=== PATIENT | female | born 1970 | race African-American/Black ===

== ENCOUNTER 2018-02-08 22:22 | Emergency (ER) | payer OTHER ==
[~2018-02-08] VITALS: Ht 160 cm; Wt 86.8 kg
[2018-02-08 22:28] VITALS: BP 136/86
== END 2018-02-08 23:50 | disposition home or self-care (01) ==
LOC: ED 23:25
DX: S83.411A Sprain of medial collateral ligament of right knee, initial encounter (principal); I10 Essential (primary) hypertension; J45.909 Unspecified asthma, uncomplicated; Z90.49 Acquired absence of other specified parts of digestive tract; Z90.710 Acquired absence of both cervix and uterus; X58.XXXA Exposure to other specified factors, initial encounter; Y93.89 Activity, other specified; Y99.8 Other external cause status
CPT/HCPCS: 29505; 99284

== ENCOUNTER 2018-05-09 12:40 | Emergency (ER) | payer OTHER ==
[~2018-05-09] VITALS: Ht 160 cm; Wt 85.6 kg
[2018-05-09] MEDS ORDERED: AMLO5TAB7 PO (13:01)
[2018-05-09] MEDS ORDERED: LORazepam 2 MG/ML, 1ML IVPush ONE ×2 (13:30→14:30)
[2018-05-09 13:32] LABS: BASOPHILS # (AUTO) 0.03 x10^3/uL (0-0.1); BASOPHILS % (AUTO) 1 % (0-1); EOSINOPHILS # (AUTO) 0.15 x10^3/uL (0-0.4); EOSINOPHILS % (AUTO) 3 % (1-7); LYMPHOCYTES # (AUTO) 1.14 x10^3/uL (1-3.4); LYMPHOCYTES % (AUTO) 22 % (22-44); MD NO; MEAN CORPUSCULAR HEMOGLOBIN 29.6 pg (27.0-34.8); MEAN CORPUSCULAR HGB CONC 33.5 g/dL (32.4-35.8); MEAN CORPUSCULAR VOLUME 88.3 fL (80-100); MEAN PLATELET VOLUME 7.8 fL (7.4-10.4); MONOCYTES # (AUTO) 0.39 x10^3/uL (0.2-0.8); MONOCYTES % (AUTO) 8 % (2-9); NEUTROPHILS # (AUTO) 3.45 x10^3/uL (1.8-6.8); NEUTROPHILS % (AUTO) 67 % (42-75); PLATELET COUNT 316 x10^3/uL (130-400); RED BLOOD COUNT 4.59 x10^6/uL (3.82-5.3); RED CELL DISTRIBUTION WIDTH 13.5 % (9.6-15.2)
[2018-05-09 13:41] LABS: ALBUMIN 3.8 g/dL (3.4-5.0); ANION GAP 11 mmol/L (5-15); CALCIUM 8.6 mg/dL (8.5-10.1); CHLORIDE 105 mmol/L (98-107)
[2018-05-09] MEDS ORDERED: LORazepam 2 MG/ML, 1ML ONE (13:41)
[2018-05-09 13:46] LABS: ALANINE AMINOTRANSFERASE 31 U/L (12-78); ALKALINE PHOSPHATASE 81 U/L (45-117); BILIRUBIN,TOTAL 0.5 mg/dL (0.2-1.0); CREATININE 0.86 mg/dL (0.55-1.02); TOTAL PROTEIN 7.9 g/dL (6.4-8.2); TROPONIN I < 0.015 ng/mL (0.000-0.045)
[2018-05-09] MEDS ORDERED: SODIUM CHLORIDE FLUSH 10ML SYR IVF ONE (14:00)
[2018-05-09] MEDS ORDERED: POTASSIUM CHLORIDE 20 MEQ TAB.ER.PRT PO ONE (14:30)
[2018-05-09] MEDS ORDERED: SODIUM CHLORIDE 0.9% 1,000ML IVBOLUS ONE (14:30)
[2018-05-09] MEDS ORDERED: POTASSIUM CHLORIDE 20 MEQ TAB.ER.PRT ONE (14:38)
[2018-05-09 14:43] VITALS: BP 122/85
== END 2018-05-09 16:01 | disposition home or self-care (01) ==
LOC: ED 14:38
DX: J45.31 Mild persistent asthma with (acute) exacerbation (principal); E87.6 Hypokalemia; M62.838 Other muscle spasm; G43.909 Migraine, unspecified, not intractable, without status migrainosus; I10 Essential (primary) hypertension; Z88.6 Allergy status to analgesic agent; Z88.1 Allergy status to other antibiotic agents; Z88.8 Allergy status to other drugs, medicaments and biological substances
CPT/HCPCS: 36415; 71045; 80053; 84484; 84703; 85025; 93005; 96374; 96376; 99285; J2060; J7030